=== PATIENT | female | born 1990 | race Caucasian/White ===

== ENCOUNTER 2023-04-27 11:16 | Emergency (ER) | payer OTHER ==
[~2023-04-27] VITALS: Ht 154.9 cm; Wt 48.5 kg
[2023-04-27 11:33] VITALS: BP 112/72; PULSE 80; RESP 18; TEMP 98; O2SAT 100
--- NOTE | 2023-04-27 12:25 | NUR ---
PT AMBULATED TO BED 09
[2023-04-27] MEDS ORDERED: AMOX1TAB8 PO (12:59)
[2023-04-27] MEDS ORDERED: BACI-418 TP (12:59)
[2023-04-27 13:47] VITALS: BP 95/63; PULSE 67; RESP 18; TEMP 97.7
--- NOTE | 2023-04-27 13:47 | NUR ---
Patient discharged with v/s stable. Written and verbal after care instructions given. Patient alert, oriented and verbalized understanding of instructions. Ambulatory with steady gait. All questions addressed prior to discharge. ID band removed. Patient advised to follow up with PMD. Rx of Amox-Clav and Bacitracin given. Opportunity to ask questions provided and answered.
--- NOTE | 2023-04-27 13:50 | NUR ---
The patient's care was reviewed and supervised by Rebecca Elliott, RN, RN.
[2023-04-27 14:03] VITALS: O2SAT 100
== END 2023-04-27 13:47 | disposition home or self-care (01) ==
LOC: MED 11:16
DX: S41.131A Puncture wound without foreign body of right upper arm, initial encounter (principal); W54.0XXA Bitten by dog, initial encounter; Y93.89 Activity, other specified; Y92.89 Other specified places as the place of occurrence of the external cause; Y99.8 Other external cause status
CPT/HCPCS: 99284